=== PATIENT | female | born 1960 | race Caucasian/White ===

== ENCOUNTER → 2016-05-25 | Outpatient (REF) | payer OTHER ==
[~2016-05-25] MED LIST: CIPR750T2 PO; FURO40TA2 PO; IBUP80TA PO; INSUHUMDS SC; JANU100T PO; LACT20EL PO; LANTINJ4 SC; LORA10TA2 PO; NADO40TA PO; NEUR300C PO; NYST10CR TOP; NYST10PW TOP; OMEP20CA3 PO; OXYC10TA12 PO; PARO40TA PO; PRED20TA PO; PROA1AER INH; PROP10TA56 PO; ROPI4TAB PO; SENN8.6C PO; SENN8.6T76 PO; SPIR100T PO; VARE1TA PO; VITA1CAP25 PO; [UNRECOGNIZED DRUG - CODE] XX
== END ==
LOC: M SMT 12:45
PROVIDERS: ATTEND Urology
DX: Z85.51 Personal history of malignant neoplasm of bladder (principal)

== ENCOUNTER → 2016-09-19 | Outpatient (REF) | payer OTHER ==
[~2016-09-19] MED LIST changes: -PARO40TA PO; +PARO40TA2 PO
== END ==
LOC: M SMT 17:22
PROVIDERS: ATTEND Urology
DX: C67.9 Malignant neoplasm of bladder, unspecified (principal)

== ENCOUNTER → 2017-01-23 | Outpatient (REF) | payer MEDICARE, MEDICAID ==
[~2017-01-23] MED LIST changes: -PROA1AER INH; +PROAAER10 INH
== END ==
LOC: M SMT 17:02
PROVIDERS: ATTEND Urology
DX: Z85.51 Personal history of malignant neoplasm of bladder (principal)

== ENCOUNTER → 2017-08-14 | Outpatient (REF) | payer MEDICARE, OTHER, MEDICAID | LOC: M LAB REF 18:08 | DX: N39.41 Urge incontinence (principal); C67.9 Malignant neoplasm of bladder, unspecified | CPT/HCPCS: 87086 ==

== ENCOUNTER → 2019-05-07 | Outpatient (REF) | payer MEDICARE, MEDICAID ==
[~2019-05-07] MED LIST changes: +LACT10SO7 PO; -LACT20EL PO; +LORA-243 PO; -LORA10TA2 PO; +NYST-15 TOP; +NYST100029 TOP; -NYST10CR TOP; -NYST10PW TOP; +OMEP1CAP73 PO; -OMEP20CA3 PO; -ROPI4TAB PO; +ROPI4TAB3 PO; -SPIR100T PO; +SPIR100T3 PO
== END ==
LOC: M SMT 16:53
PROVIDERS: ATTEND Urology
DX: C67.9 Malignant neoplasm of bladder, unspecified (principal)

== ENCOUNTER → 2020-03-29 | Outpatient (REF) | payer MEDICARE, MEDICAID | LOC: M SMT 13:12 | PROVIDERS: ATTEND Urology | DX: Z85.51 Personal history of malignant neoplasm of bladder (principal) ==

== ENCOUNTER → 2020-11-23 | Outpatient (REF) | payer MEDICARE, MEDICAID | LOC: M SMT 16:59 | PROVIDERS: ATTEND Urology | DX: N39.0 Urinary tract infection, site not specified (principal); Z85.51 Personal history of malignant neoplasm of bladder ==

== ENCOUNTER 2020-12-18 12:54 | Inpatient (IN) | payer MEDICARE, MEDICAID ==
[~2020-12-18] VITALS: Ht 162.6 cm; Wt 110.2 kg
--- NOTE | 2020-12-18 16:59 | REP ---
INDICATION: fall/pain/limited ROM. COMPARISON: None. TECHNIQUE: AP view of the pelvis and AP and lateral view of the left hip were obtained. FINDINGS: There is a mildly impacted subcapital fracture of the left femur. The right hip is normal. There is minimal arthritis of both SI joints. There is a soft tissue calcification in the left proximal thigh. IMPRESSION: 1. Mildly impacted subcapital fracture of the left femur. 2. Evidence of remote injury to the origin of the left rectus femoris. 3. Mild arthritis of both SI joints. Critical Findings: Subcapital fracture of the left femur. The critical information above was relayed directly by me by telephone to DARREL MEDINA on 12/18/2020 at 4:54 pm with readback verification. <Electronically signed by Irwin John > 12/18/20 [id number]
[2020-12-18] MEDS ORDERED: MORPHINE 4 MG/ML 1ML VIAL/SYRINGE (J2270) IV ONE (17:00)
[2020-12-18 17:29] LABS: BASO % 0.8 % (0.0-1.0); EOS # 0.1 10^3/uL (0.0-0.5); EOS % 2.8 % (0.0-3.0); HEMATOCRIT 41.4 % (36.0-47.0); HEMOGLOBIN 13.9 g/dl (12.0-15.5); LYMPH # 0.8 10^3/uL (1.5-5.0); LYMPH % 31.5 % (24.0-44.0); MEAN CORPUSCULAR HEMOGLOBIN 30.8 pg (27.0-33.0); MEAN CORPUSCULAR HGB CONC 33.6 g/dl (32.0-36.5); MEAN CORPUSCULAR VOLUME 91.6 fl (80.0-96.0); MONO # 0.3 10^3/uL (0.0-0.8); MONO % 10.4 % (2.0-8.0); NEUTROPHILS # 1.4 10^3/uL (1.5-8.5); NEUTROPHILS % 54.1 % (36.0-66.0); RED BLOOD COUNT 4.52 10^6/uL (4.00-5.40); WHITE BLOOD COUNT 2.5 10^3/uL (4.0-10.0)
[2020-12-18 17:39] LABS: INR 1.23; PROTHROMBIN TIME 15.9 SECONDS (12.7-14.5)
[2020-12-18 17:40] LABS: PARTIAL THROMBOPLASTIN TIME 42.1 SECONDS (25.9-37.0)
[2020-12-18] MEDS ORDERED: GLUCAGON INJ 1MG VIAL SC PRN (17:45)
[2020-12-18] MEDS ORDERED: GLUCOSE 4GM CHEW TABLET PO PRN (17:45)
[2020-12-18] MEDS ORDERED: DEXTROSE 50% 50 ML SYRINGE IV PRN (17:45)
--- NOTE | 2020-12-18 17:45 | IPNPDOC ---
Text Note Date of Service Ortho eval - Images reviewed. Pt. with Hx of fall 2 wks previously and presents with L femoral neck Fx - Admit to medical service --> OR clearance - Duplex B/L LE given age of Fx - Plan for CRPP 12/19 - NWB, bed rest - SCD pending U/S results - Full consult to follow - Medical assistance appreciated VS,Fishbone, I+O VS, Fishbone, I+O Vital Signs Date Time Temp Pulse Resp B/P (MAP) Pulse Ox O2 Delivery O2 Flow Rate FiO2 12/18/20 17:34 20 12/18/20 12:55 97.3 65 118/56 (76) 97 Room Air SANKET RODRIGUEZ MD Dec 18, 2020 17:45
[2020-12-18 17:57] LABS: BLOOD UREA NITROGEN 11 MG/DL (7-18); CALCIUM LEVEL 8.1 MG/DL (8.8-10.2); CARBON DIOXIDE LEVEL 33 MEQ/L (21-32); CHLORIDE LEVEL 105 MEQ/L (98-107); CREATININE FOR GFR 0.55 MG/DL (0.55-1.30); GLOMERULAR FILTRATION RATE > 60.0 (>45); GLUCOSE, FASTING 291 MG/DL (70-100); POTASSIUM SERUM 3.8 MEQ/L (3.5-5.1); SODIUM LEVEL 140 MEQ/L (136-145)
[2020-12-18 17:58] LABS: PLATELET COUNT, AUTOMATED 30 10^3/uL (150-450)
[2020-12-18 18:25] LABS: RSV AMPLIFICATION NEGATIVE (NEGATIVE)
--- NOTE | 2020-12-18 18:28 | REP ---
INDICATION: fractured hip 3 weeks ago. COMPARISON: None. TECHNIQUE: Pulse duplex and color Doppler ultrasound evaluation of the lower extremities was performed. FINDINGS: There are no findings to suggest deep venous thrombosis of either lower extremity. IMPRESSION: No evidence of deep venous thrombosis of either lower extremity. <Electronically signed by Irwin John > 12/18/20 0803
--- NOTE | 2020-12-18 18:37 | REPVR ---
PROCEDURE INFORMATION: Exam: XR Chest Exam date and time: 12/18/2020 6:14 PM Age: 60 years old Clinical indication: Other: Pre op; Additional info: Preop hip FX TECHNIQUE: Imaging protocol: XR of the chest. Views: 1 view. COMPARISON: CT ABD PELVIS W/O CONTRAST 02/09/2015 10:53 PM FINDINGS: Lungs: Atelectasis left lung base. Lungs are clear. Pleural spaces: Unremarkable. No pleural effusion. No pneumothorax. Heart/Mediastinum: Unremarkable. No cardiomegaly. Bones/joints: Status post lower cervical interbody fusion. IMPRESSION: No acute findings. Electronically signed by: Twin Nair On 12/18/2020 18:36:39 PM
--- NOTE | 2020-12-18 18:41 | HPEPDOC ---
[facility] Medical History & Physical Date of Admission Dec 18, 2020 Date of Service: Dec 18, 2020 History and Physical CHIEF COMPLAINT: left hip pain x 3 weeks, fall at home 3 wks ago HISTORY OF PRESENT ILLNESS: 60F on gabapentin, ropinirole fell asleep while standing in her kitchen 3 weeks ago, landing on her left side, hitting her head on the floor, but awakened quickly, and was able to getup after a few minutes. Pt was evaluated at [facility], and was sent home. Due to persistent left hip pain, she then went to [facility] last week and was given pain meds. She has been walking with a walker and cane, and noticed b/l LE edema today w/o sob, pleuritic chest pain, or palpitations. Pt denied any prodromal symptoms prior to her fall, and said she just "fell asleep" while she was standing. She c/o left hip pain 8/10 worse with bearing weight and ambulating, minimal relief w PRN pain meds. w/o parethesias or cyanosis of the left leg, but b/l LE swelling noted just today. She denies any recurrent falls. ROS: denies wt changes/appetite/n/v/d/abd pain, visual changes, ear d/c, vertigo, tinnitus, URI sx's like rhinorrhea , congestion, h/a, dysuria, urgency, frequency, LAD, mm or joint pains, polyuria, polydipsia, polyphagia, UE/LE paresthesias. At [facility], pt was found to have a left subcapital femoral fracture and b/l LE edema being ruled out for DVT. Pt was seen by [facility] ortho radio communications superintendent who will take her to the OR in am. Hospitalist was asked to admit and medically optimize the patient. PAST MEDICAL HISTORY: Bladder CA s/p TURBT DM2 COPD Liver Cirrhosis Bneton's esophagus Fibromyalgia chronic neck/back pain depression Restless legs syndrome DM peripheral neuropathy PAST SURGICAL HISTORY: appy cholecystectomy carpal tunnel csection hysterectomy bladder repair tubial ligation TURBT liver biopsy SOCIAL HISTORY: smoker social etoh denies drug use disabled FAMILY HISTORY: Father: cad Mother:dm, cad ALLERGIES: PCN REVIEW OF SYSTEMS: 10 point ROS neg aside from +finding on hpi HOME MEDICATIONS: Please see below. PHYSICAL EXAMINATION: VITAL SIGNS: see below GENERAL APPEARANCE: anicteric no distress no pallor speaks in full sentences HEENT: no jvd eomi no carotid bruit moist mm CARDIOVASCULAR: s1 s2 no s3 rrr LUNGS: CTAB AEBE ABDOMEN:obese distended no rebound or guarding +bowel sounds. +fluid wave EXTREMITIES: 3+edema to sacrum, left hip tender. dp pt 2+ pulses. warm to touch. chronic venous stasis changes b/l LE. LABORATORY DATA: See below. IMAGING: see below MICROBIOLOGY: Please see below. ASSESSMENT: 60F on gabapentin, ropinirole fell asleep while standing in her kitchen 3 weeks ago, landing on her left side, hitting her head on the floor, but awakened quickly, and was able to getup after a few minutes. Pt was evaluated at [facility], and was sent home. Due to persistent left hip pain, she then went to [facility] last week and was given pain meds. She has been walking with a walker and cane, and noticed b/l LE edema today w/o sob, pleuritic chest pain, or palpitations. Pt denied any prodromal symptoms prior to her fall, and said she just "fell asleep" while she was standing. She c/o left hip pain 8/10 worse with bearing weight and ambulating, minimal relief w PRN pain meds. w/o parethesias or cyanosis of the left leg, but b/l LE swelling noted just today. She denies any recurrent falls. ROS: denies wt changes/appetite/n/v/d/abd pain, visual changes, ear d/c, vertigo, tinnitus, URI sx's like rhinorrhea , congestion, h/a, dysuria, urgency, frequency, LAD, mm or joint pains, polyuria, polydipsia, polyphagia, UE/LE paresthesias. At [facility], pt was found to have a left subcapital femoral fracture and b/l LE edema being ruled out for DVT. Pt was seen by [facility] ortho radio communications superintendent who will take her to the OR in am. H ospitalist was asked to admit and medically optimize the patient. Pt is admitted for left hip fracture s/p fall due to medication-induced ams as an inpatient. Medical clearance -high risk for dvt, us b/l le ordered. if negative, gentle diuresis for comfort overnight. -medically optimized to proceed to surgery in am.cxr ekg ordered. -npo after midnight. hypoglycemic protocol Left subcapital femoral fracture -ortho consulted -npo after midnight B/L LE edema -r/o dvt -venous dopplers ordered liver cirrhosis with anasarca -resume lasix, and if becomes hypotensive, may need albumin q6hrs. -may need paracentesis during this admission. -r/o dvt w venous dopplers Bladder CA s/p TURBT -stable DM2 -consist carbs diet, but npo aftermidnight -fbgqachs, sliding scale COPD -resume bronchodilators Benton's esophagus -on PPI Fibromyalgia/chronic neck/back pain -monitor on home meds. -has caused sedation causing left hip fracture depression -chronic Restless legs syndrome -chronic DM peripheral neuropathy -avoid excessive sedation. Vital Signs Vital Signs Date Time Temp Pulse Resp B/P (MAP) Pulse Ox O2 Delivery O2 Flow Rate FiO2 12/18/20 17:34 20 12/18/20 12:55 97.3 65 118/56 (76) 97 Room Air Laboratory Data Labs 24H Laboratory Tests 2 12/18/20 17:10: Immature Granulocyte % (Auto) 0.4, Neutrophils (%) (Auto) 54.1, Lymphocytes (%) (Auto) 31.5, Monocytes (%) (Auto) 10.4H, Eosinophils (%) (Auto) 2.8, Basophils (%) (Auto) 0.8, Neutrophils # (Auto) 1.4L, Lymphocytes # (Auto) 0.8L, Monocytes # (Auto) 0.3, Eosinophils # (Auto) 0.1, Basophils # (Auto) 0.0, Nucleated Red Blood Cells % (auto) 0.0, Immature Platelet Fraction 13.2H, Prothrombin Time 15.9H, Prothromb Time International Ratio 1.23, Activated Partial Thromboplast Time 42.1H, Anion Gap 2L, Glomerular Filtration Rate > 60.0, Calcium Level 8.1L CBC/BMP Laboratory Tests 12/18/20 17:10 Home Medications Scheduled Cholecalciferol (Vitamin D3) (Vitamin D3) 50,000 Unit Cap, 50,000 UNIT PO 1XWK Ciprofloxacin HCl (Ciprofloxacin HCl) 750 Mg Tab, 750 MG PO BID Furosemide (Furosemide) 40 Mg Tab, 80 MG PO DAILY Gabapentin (Neurontin) 300 Mg Cap, 300 MG PO QHS Insulin Glargine,Hum.rec.anlog (Lantus Solostar) 100 Unit/Ml Inj, 70 UNITS SC QHS Insulin Human Lispro (Humalog) 1 Units/0.01 Ml Inj, 40 UNITS SC BID Loratadine (Loratadine) 10 Mg Tab, 10 MG PO DAILY Omeprazole (Omeprazole) 20 Mg Cap, 20 MG PO DAILY Paroxetine HCl (Paroxetine HCl) 40 Mg Tab, 40 MG PO DAILY Propranolol HCl (Propranolol HCl) 10 Mg Tab, 10 MG PO TID Ropinirole HCl (Ropinirole HCl) 4 Mg Tab, 2 MG PO BID Senna (Senna) 8.6 Mg Cap, 1 CAP PO DAILY Sitagliptin Phosphate (Januvia) 100 Mg Tab, 100 MG PO DAILY Spironolactone (Spironolactone) 100 Mg Tab, 200 MG PO DAILY Varenicline (Chantix) 1 Mg Tab, 1 MG PO BID Scheduled PRN Albuterol Sulfate (Proair Hfa) 108 Mcg/Act Aer, 108 MCG INH Q4HP PRN for SHORTNESS OF BREATH Ibuprofen (Ibuprofen) 800 Mg Tab, 800 MG PO TIDP PRN for PAIN Lactulose (Lactulose) 10 Gm/15 Ml Nneka, 30 GM PO DAILYPRN PRN for CONSTIPATION Nystatin (Nystop Powder) 1 Dose/15 Gm Powd, 0 TOP BIDP PRN for RASH Nystatin (Nystatin Cream) 1 Dose/15 Gm Cream, 0 TOP BIDP PRN for RASH Polyethylene Glycol 3350 (Polyethylene Glycol 3350) 1 Gra Gra, 1 GRA XX DAILYPRN PRN for CONSTIPATION Allergies Coded Allergies: gabapentin (Verified Allergy, Unknown, 12/18/20) A-FIB/CHADSVASC A-FIB History Current/History of A-Fib/PAF?: No Current PO Anticoag Therapy: No Age/Risk Factor Scoring CHADSVASC: CHADSVASC Response (Comments) Value Age Risk Factor Age < 65 years old 0 Gender Risk Factor Female 1 Hx of CHF No 0 Hx of HTN No 0 Hx of Stroke/TIA/or VTE No 0 Hx of Diabetes Yes 1 Hx of Vascular Disease No 0 Total 2 Treatment Treatment ordered: NONE Reason Anticoagulant not given: Recent/upcomin procedure MARILYNN SOLIS MD Dec 18, 2020 18:41
[2020-12-18] MEDS ORDERED: TOUJ1.2I SC (18:42)
[2020-12-18] MEDS ORDERED: LINZ145C PO (18:42)
[2020-12-18] MEDS ORDERED: OXYC-517 PO (18:42)
[2020-12-18] MEDS ORDERED: VENL75CA47 PO (18:42)
[2020-12-18] MEDS ORDERED: ATIV1TAB10 PO (18:42)
[2020-12-18] MEDS ORDERED: NOVOINJ3 SC (18:42)
[2020-12-18] MEDS ORDERED: CONS10SO3 PO (18:42)
[2020-12-18] MEDS ORDERED: HYDR-3363 PO (18:42)
[2020-12-18] MEDS ORDERED: FLUTISP NARES (18:42)
[2020-12-18] MEDS ORDERED: TRAM50TA2 PO (18:42)
[2020-12-18] MEDS ORDERED: HOME MED LIST COMPLETE! XX SCH (18:45)
[2020-12-18] MEDS ORDERED: LORazepam 0.5 MG TAB PO PRN (18:50)
[2020-12-18] MEDS ORDERED: FLUTICASONE PROP 0.05% NASAL SPRAY 16 GM (FLONASE) NARES PRN (18:50)
[2020-12-18] MEDS ORDERED: hydrOXYzine 25 MG TAB PO PRN (18:50)
[2020-12-18] MEDS ORDERED: traMADol 50 MG TAB PO PRN (18:50)
--- NOTE | 2020-12-18 18:55 | ECGEPIP ---
[facility] Test Date: 2020-12-18 Pat Name: RADHIKA CLAROS Department: Room: - Gender: Female Administrative Clerk: magdalena : 1960 Requested By: MARILYNN Dunaway Order Number: [id number] Reading MD: Lupillo Pena Measurements Intervals [place] Rate: 55 P: 77 SD: 168 QRS: 61 QRSD: 102 T: 51 QT: 468 QTc: 447 Interpretive Statements Sinus bradycardia Delayed anterior R wave progression Comparison tracing not on file Electronically Signed on 12-18-2020 18:54:45 EDT by Lupillo Pena
[2020-12-18 19:02] VITALS: BP 138/58
[2020-12-18] MEDS: LACTULOSE 20 GM/30 ML SYRUP UD PO SCH (21:51)
[2020-12-18] MEDS: oxyCODONE 5MG TAB PO PRN (21:52)
[2020-12-18] MEDS: HumaLOG INSULIN (NovoLOG) PER UNIT SC SCH (21:53)
[2020-12-18] MEDS: LEVEMIR (INSULIN DETEMIR) 1 UNITS/0.01ML SC SCH (21:53)
[2020-12-18 22:00] VITALS: BP 136/57
[2020-12-19] VITALS (12 sets, daily range): BP systolic 99–128; BP diastolic 49–83; O2SAT 94
[2020-12-19] MEDS: oxyCODONE 5MG TAB PO PRN ×2 (05:48→20:28)
[2020-12-19] MEDS: HumaLOG INSULIN (NovoLOG) PER UNIT SC SCH ×4 (07:30→20:27)
[2020-12-19] MEDS: LACTULOSE 20 GM/30 ML SYRUP UD PO SCH ×4 (08:07→20:26)
--- NOTE | 2020-12-19 08:24 | CR.PDOC ---
General Date of Consultation: Dec 19, 2020 Referring Provider: MARILYNN SOLIS MD Consultation REASON FOR CONSULTATION/CHIEF COMPLAINT: L hip Fx. HISTORY OF PRESENT ILLNESS: 60 yo F with mulitple medical problems presented to ED with L hip pain. Pt. noted to have fallen asleep while standing and fell. Seen in local ED near home with hip pain and discharged with a cane. Pt. has been walking on her leg since that time and notes persistent pain and difficulty. ALLERGIES: PCN. HOME MEDICATIONS: Please see below. PAST MEDICAL HISTORY: Bladder CA s/p TURBT DM2 COPD Liver Cirrhosis Benton's esophagus Fibromyalgia chronic neck/back pain depression Restless legs syndrome DM peripheral neuropathy PAST SURGICAL HISTORY: appy cholecystectomy carpal tunnel csection hysterectomy bladder repair tubial ligation TURBT liver biopsy SOCIAL HISTORY: smoker social etoh denies drug use disabled FAMILY HISTORY: Father: cad Mother:dm, cad REVIEW OF SYSTEMS: CONSTITUTIONAL: . HEENT: . CARDIOVASCULAR: . RESPIRATORY: . GENITOURINARY: . MUSCULOSKELETAL: L hip pain. GASTROINTESTINAL: . SKIN: . NEUROLOGICAL: . PSYCHIATRIC: . ENDOCRINE: . HEMATOLOGIC/LYMPHATIC: . ALLERGIC/IMMUNOLOGIC: . PHYSICAL EXAMINATION: VITAL SIGNS: Please see below. GENERAL APPEARANCE: AAOx3. HEENT: . RESPIRATORY: . CARDIOVASCULAR: . ABDOMEN: . EXTREMITIES: LLE - + pain on log roll, decreased ROM NEUROLOGICAL: sp/dp/s/s/t intact PSYCHIATRIC: . LABORATORY DATA: Please see below. ASSESSMENT/PLAN: 1. 60 yo F with L femoral neck Fx, valgus impacted - Plan CRPP today - NWB - NPO - Pt. to be TTWB following surgical intervention Vital Signs Date Time Temp Pulse Resp B/P (MAP) Pulse Ox O2 Delivery O2 Flow Rate FiO2 12/19/20 06:18 18 12/19/20 06:00 97.9 60 16 104/49 (67) 94 Room Air 12/19/20 05:48 16 12/18/20 22:22 14 12/18/20 22:00 97.9 63 16 136/57 (83) 93 Room Air 12/18/20 21:52 16 12/18/20 19:02 97.9 58 16 138/58 (84) 98 Room Air 12/18/20 17:34 20 12/18/20 12:55 97.3 65 18 118/56 (76) 97 Room Air Intake & Output 12/19/20 06:00 Intake Total 410 ml Balance 410 ml Laboratory Tests 12/18/20 17:10: White Blood Count 2.5L, Red Blood Count 4.52, Hemoglobin 13.9, Hematocrit 41.4, Mean Corpuscular Volume 91.6, Mean Corpuscular Hemoglobin 30.8, Mean Corpuscular Hemoglobin Concent 33.6, Red Cell Distribution Width 14.5, Platelet Count 30L, Immature Granulocyte % (Auto) 0.4, Neutrophils (%) (Auto) 54.1, Lymphocytes (%) (Auto) 31.5, Monocytes (%) (Auto) 10.4H, Eosinophils (%) (Auto) 2.8, Basophils (%) (Auto) 0.8, Neutrophils # (Auto) 1.4L, Lymphocytes # (Auto) 0.8L, Monocytes # (Auto) 0.3, Eosinophils # (Auto) 0.1, Basophils # (Auto) 0.0, Nucleated Red Blood Cells % (auto) 0.0, Immature Platelet Fraction 13.2H, Prothrombin Time 15.9H, Prothromb Time International Ratio 1.23, Activated Partial Thromboplast Time 42.1H, Sodium Level 140, Potassium Level 3.8, Chloride Level 105, Carbon Dioxide Level 33H, Anion Gap 2L, Blood Urea Nitrogen 11, Creatinine 0.55, Glomerular Filtration Rate > 60.0, Fasting Glucose 291H, Calcium Level 8.1L, Coronavirus (COVID-19)(PCR) NEGATIVE, Influenza Type A (RT-PCR) NEGATIVE, Influenza Type B (RT-PCR) NEGATIVE, Respiratory Syncytial Virus (PCR) NEGATIVE 12/18/20 21:08: Bedside Glucose (Misc Panel) 288H 12/19/20 05:07: Bedside Glucose (Misc Panel) 181H Current Medications Medications (Trade) Dose Ordered Sig/Eladio Route PRN Reason Start Time Stop Time Status Last Admin Dose Admin Hydroxyzine HCl (Atarax) 25 mg QHS PRN PO ANXIETY 12/18/20 18:50 12/18/20 21:51 25 MG Insulin Detemir (Levemir Insulin) 30 units BID SC 12/18/20 21:00 12/18/20 21:53 30 UNITS Insulin Human Lispro (HumaLOG INSULIN) SEE PROTOCOL TABLE QHS SC 12/18/20:00 12/18/20 21:53 2 UNITS Lactulose (Cephulac) 30 ml QID PO 12/18/20 21:00 12/18/20 21:51 30 ML Oxycodone HCl (Roxicodone, Oxyir) 5 mg Q6H PRN PO PAIN LEVEL 5-10 12/18/20 18:50 12/19/20 05:48 5 MG Vital Signs/I&O Vital Signs Date Time Temp Pulse Resp B/P (MAP) Pulse Ox O2 Delivery O2 Flow Rate FiO2 12/19/20 06:18 18 12/19/20 06:00 97.9 60 104/49 (67) 94 Room Air I&O- Last 24 Hours up to 6 AM 12/19/20 06:00 Intake Total 410 ml Balance 410 ml Laboratory Data Labs 24H Laboratory Tests 2 12/18/20 17:10: Immature Granulocyte % (Auto) 0.4, Neutrophils (%) (Auto) 54.1, Lymphocytes (%) (Auto) 31.5, Monocytes (%) (Auto) 10.4H, Eosinophils (%) (Auto) 2.8, Basophils (%) (Auto) 0.8, Neutrophils # (Auto) 1.4L, Lymphocytes # (Auto) 0.8L, Monocytes # (Auto) 0.3, Eosinophils # (Auto) 0.1, Basophils # (Auto) 0.0, Nucleated Red Blood Cells % (auto) 0.0, Immature Platelet Fraction 13.2H, Prothrombin Time 15.9H, Prothromb Time International Ratio 1.23, Activated Partial Thromboplast Time 42.1H, Anion Gap 2L, Glomerular Filtration Rate > 60.0, Calcium Level 8.1L, Coronavirus (COVID-19)(PCR) NEGATIVE, Influenza Type A (RT-PCR) NEGATIVE, Influenza Type B (RT-PCR) NEGATIVE, Respiratory Syncytial Virus (PCR) NEGATIVE 12/18/20 21:08: Bedside Glucose (Misc Panel) 288H 12/19/20 05:07: Bedside Glucose (Misc Panel) 181H CBC/BMP Laboratory Tests 12/18/20 17:10 Allergies Coded Allergies: gabapentin (Verified Allergy, Unknown, 12/18/20) Home Medications Scheduled Insulin Aspart (Novolog Flexpen) 100 Unit/1 Ml Insuln.pen, 1 DOSE SC AC, (Reported) PER SLIDING SCALE Insulin Glargine,Hum.rec.anlog ([place] Solostar) 300 Unit/1 Ml Insuln.pen, 30 UNITS SC BID, (Reported) Lactulose (Constulose) 10 Gm/15 Ml Solution, 30 ML PO QID, (Reported) Linaclotide (Linzess) 145 Mcg Capsule, 145 MCG PO DAILY, (Reported) Venlafaxine HCl (Venlafaxine HCl ER) 75 Mg Cap.er.24h, 75 MG PO DAILY, (Reported) Scheduled PRN Fluticasone Propionate (Fluticasone Propionate) 16 Gm [place].susp, 1 SPRAY NARES BID PRN for CONGESTION, (Reported) Hydroxyzine HCl (Hydroxyzine HCl) 25 Mg Tablet, 25 MG PO QHS PRN for ANXIETY, (Reported) Lorazepam (Ativan) 0.5 Mg Tablet, 0.5 MG PO BID PRN for ANXIETY, (Reported) Oxycodone HCl (Oxycodone HCl) 5 Mg Tablet, 5 MG PO Q6H PRN for PAIN LEVEL 5-10, (Reported) Tramadol HCl (Tramadol HCl) 50 Mg Tablet, 50 MG PO BID PRN for PAIN LEVEL 3-5, (Reported) SANKET RODRIGUEZ MD Dec 19, 2020 08:24
--- NOTE | 2020-12-19 08:36 | REP ---
INDICATION: Fx. COMPARISON: Left hip and pelvis, 12/18/2020. TECHNIQUE: AP and frogleg lateral views of the left hip were obtained. FINDINGS: There is again noted and impacted subcapital fracture of the left femur. The fracture is of indeterminate age. IMPRESSION: Impacted subcapital fracture of the left femur of indeterminate age. <Electronically signed by Irwin John > 12/19/20 0839
[2020-12-19] MEDS: VENLAFAXINE **XR** 75MG CAPSULE PO SCH (09:00)
[2020-12-19] MEDS ORDERED: FLUBLOK(EGG FREE)(QUAD)INFLUENZA VACC 0.5ML SYRINGE 18YRS & OLDER IM ONE (09:00)
[2020-12-19] MEDS ORDERED: LINACLOTIDE PO SCH (09:00)
[2020-12-19] MEDS: LEVEMIR (INSULIN DETEMIR) 1 UNITS/0.01ML SC SCH ×2 (09:00→20:27)
[2020-12-19] MEDS ORDERED: ceFAZolin 2 GM/D5W 50 ML IV BAG (J0690 PER 500MG) As Ordered ONE (11:42)
[2020-12-19] MEDS ORDERED: TRANEXAMIC ACID 100 MG/ML 10ML VIAL As Ordered ONE (12:10)
[2020-12-19] MEDS ORDERED: fentaNYL 100 MCG/2 ML INJECTION (J3010) As Ordered ONE (12:13)
[2020-12-19] MEDS ORDERED: ePHEDrine SULFATE 25 MG/5 ML(5MG/ML) SYRINGE As Ordered ONE (12:13)
[2020-12-19] MEDS ORDERED: SUGAMMADEX SODIUM 500 MG/5 ML VIAL (BRIDION) As Ordered ONE (12:13)
[2020-12-19] MEDS ORDERED: ROCURONIUM BROMIDE 50 MG/5 ML VIAL As Ordered ONE ×2 (12:13→12:43)
[2020-12-19] MEDS ORDERED: ONDANSETRON 4MG/2ML VIAL As Ordered ONE ×2 (12:13→12:15)
[2020-12-19] MEDS ORDERED: propofoL 200 MG/20 ML VIAL As Ordered ONE (12:13)
[2020-12-19] MEDS ORDERED: HYDROmorphone HCL 2 MG/ML 1ML VIAL (J1170) As Ordered ONE (12:13)
[2020-12-19] MEDS ORDERED: dexameTHASONE 4 MG/ML 1ML VIAL (J1100 PER 1MG) As Ordered ONE (12:13)
[2020-12-19] MEDS ORDERED: MIDAZOLAM INJ 2MG/2ML VIAL (J2250 PER 1MG) As Ordered ONE (12:13)
[2020-12-19] MEDS ORDERED: LIDOCAINE 2% 100MG/5ML SDV (FOR ANES.) As Ordered ONE (12:13)
[2020-12-19] MEDS ORDERED: VASOPRESSIN INJ 20 UNITS/ML VIAL As Ordered ONE (12:15)
--- NOTE | 2020-12-19 13:44 | ROOPDOC ---
[facility] Report Of Operation Report of Operation DATE OF PROCEDURE: 12/19/20 PREPROCEDURE DIAGNOSES: Left femoral neck fracture. POSTPROCEDURE DIAGNOSES: Same. PROCEDURE PERFORMED: Closed reduction percutaneous pinning left hip. SURGEON: Sanket Donahue MD VIBRATION ENGINEER: ANESTHESIA: General. ESTIMATED BLOOD LOSS: Approximately 50 mL. COMPLICATIONS: None. REMARKS: Stable to PACU. FINDINGS: As above SPECIMENS REMOVED: None PROCEDURE NOTE: Patient is a 60-year-old female status post fall from standing when she fell asleep approximately 3 weeks previously. She was seen in an outside hospital for left hip pain and discharged home. She had been ambulating with a cane however continue to have persistent left hip pain and presented to [facility] for evaluation. Diagnosis of nondisplaced left subcapital femoral neck fracture was made and plans for operative intervention ensued. Patient was greeted in the holding area all final questions were asked and answered. Informed consent was obtained and site was marked. Patient was then transferred to the operating suite moved from the bed to the op erating table in a supine position and induced via general anesthetic. All bony prominences were padded. Contralateral nonoperative leg was placed in fracture table stirrup. Operative leg was placed in ski boot after application of well- padded cotton roll. Mild manipulation and distraction of fracture ensued to improve anatomical alignment. Preoperative x-rays were recorded and saved. Once orientation had been achieved a 5 cm incision was made over the lateral aspect of the left leg was bluntly brought down to the femur and fascial layer was spread bluntly with Bunn scissors. Initial guidepin was placed under direct visualization. Alignment was found to be adequate confirmed on both AP and lateral radiographs for which additional superior pins one anteriorly and posterior in an inverted triangle fashion were placed. All guide pins were stopped short of the undersurface of the femoral articular cartilage. Measurements were made to achieve screw length and found to be 80 cm x 2 superiorly and 90 cm for the inferior pin. Guidewires were left in place and lateral cortex was breached with drill bit. Cancellous screws were then placed over guidewire fashion and found to be appropriate tip apex distance via both AP and lateral radiographs. Guidepins were then removed. Fixation was recorded to be a final AP and lateral radiographs. Copious irrigation then ensued and fascial layer was closed in an interrupted fashion using 0 Vicryl. 0 Vicryl to the deep subcutaneous layer was then made followed by 2-0 Vicryl to the subcutaneous tissue. Skin layer was closed with joanne. Dry sterile occlusive dressing was placed and patient was weaned from anesthetic successfully. She was transferred from the operating table to the stretcher in stable condition. Uneventful procedure which was well-tolerated and patient was discharged to the PACU in stable condition. DESCRIPTION OF PROCEDURE: . SANKET DONAHUE MD Dec 19, 2020 13:43
[2020-12-19] MEDS ORDERED: ONDANSETRON 4MG/2ML VIAL IV PRN (14:00)
[2020-12-19] MEDS ORDERED: MORPHINE 2 MG/ML 1ML VIAL (J2270) IV PRN (14:00)
[2020-12-19] MEDS ORDERED: oxyCODONE 5MG TAB PO PRN (14:00)
[2020-12-19] MEDS ORDERED: fentaNYL 100 MCG/2 ML INJECTION (J3010) IV PRN (14:00)
[2020-12-19] MEDS ORDERED: LR 1,000 ML IV SCH (14:00)
[2020-12-19] MEDS ORDERED: METOCLOPRAMIDE INJ 10MG/2ML VIAL (J2765 PER 1) IV PRN (14:00)
--- NOTE | 2020-12-19 15:41 | REP ---
INDICATION: ORIF LEFT HIP. COMPARISON: None. TECHNIQUE: 4 images were obtained intraoperatively with the C-arm during orthopedic screw placement. FINDINGS: Four images were obtained intraoperatively with a C-arm during orthopedic screw placement. IMPRESSION: As in findings. <Electronically signed by Irwin John > 12/19/20 0308
--- NOTE | 2020-12-19 16:09 | IPN ---
PROGRESS NOTE DATE: 12/19/2020 SUBJECTIVE: Patient complains of no pain while she is laying on her back at the bedside. No fever, chills, cough. No chest pain this morning. Patient has chronic lower extremity edema with increasing abdominal distention due to known history of liver cirrhosis. No deep venous thrombosis (DVT) noted on ultrasound on lower extremities yesterday. PHYSICAL EXAMINATION: VITAL SIGNS: Temperature 97.9, pulse 60, respiratory rate 16, blood pressure 104/49, 94% on room air. GENERAL: Awake, alert, oriented to person, place and time. HEENT: Anicteric. No jaundice. No jugular venous distention (JVD) or thyromegaly. LUNGS: Clear to auscultation.. No wheezing or rales. HEART: S1, S2. Sinus rhythm. ABDOMEN: Obese, soft, nontender, slightly distended with positive fluid wave. EXTREMITIES: 3+ edema to the sacrum. Left hip tender. Chronic venous stasis changes of the lower extremities. LABORATORY DATA/IMAGING STUDIES/MICROBIOLOGY: Have been reviewed. ASSESSMENT: This is a 60-year-old female with history of liver cirrhosis, thrombocytopenia and leukopenia with prior paracentesis, bladder cancer status post transurethral resection of the bladder tumor, type 2 diabetes, chronic obstructive pulmonary disease (COPD), Benton's esophagus, fibromyalgia, chronic neck and back pain, depression, restless leg and diabetic peripheral neuropathy, had a fall at home when she fell asleep while standing and fell and hit her head on the floor due to chronic gabapentin and ropinirole causing sedation. Patient was able to get up after a few minutes. She was seen at [facility] ([facility]) first and was sent home. Due to persistent pain, she went to [facility] and was given pain medication and has been ambulating with a walker and a cane. She has noticed a one day history of bilateral lower extremity edema, increasing pain and difficulty ambulating, prompting her to come to [facility]. She was found to have a left femoral impacted fracture, was seen by orthopedic surgeon who recommended surgical intervention. Overnight, patient has had no acute issues. IMPRESSION: 1. Left femoral fracture. Patient is medically stable to proceed to surgery despite platelets of 30,000. She is currently not exhibiting any signs of bleeding and she has been consented for transfusion. 2. Decompensated liver cirrhosis with significant ascites and 3+ lower extremity edema with negative deep venous thrombosis (DVT) on bilateral lower extremity Dopplers. Postoperatively, patient may be started back on her consistent carbohydrate diet and can start diuresis with intravenous (IV) Lasix and albumin transfusions to keep mean arterial pressure at 70-75. 3. History of Benton's esophagus. Continue on proton pump inhibitor (PPI). 4. History of fibromyalgia, chronic neck and back pain and restless leg syndrome with diabetic peripheral neuropathy. At risk for recurrent falls due to gabapentin and ropinirole. Will need assisted ambulation, physical therapy (PT), occupational therapy (OT) and acute rehabilitation unit (ARU) screen. 5. Type 2 diabetes. Consistent carbohydrate diet to be resumed. Sliding scale with insulin coverage. 5. Chronic obstructive pulmonary disease (COPD). As needed bronchodilators. 6. Left hip fracture. Postoperative management per surgical team. Will need deep venous thrombosis (DVT) prophylaxis due to increased risk of DVT, but will need to monitor the patient's platelets and signs of bleeding due to thrombocytopenia from chronic liver cirrhosis.
[2020-12-19] MEDS: FUROSEMIDE injection 250 MG in D5W 225 ML IV SCH (18:00)
[2020-12-19] MEDS ORDERED: MIDODRINE 5 MG TAB PO ONE (18:30)
[2020-12-19] MEDS: ceFAZolin SOD 2 GM in IV 1 EA IV SCH (18:46)
[2020-12-19 23:56] LABS: BLOOD UREA NITROGEN 16 MG/DL (7-18); CALCIUM LEVEL 7.7 MG/DL (8.8-10.2); CARBON DIOXIDE LEVEL 30 MEQ/L (21-32); CHLORIDE LEVEL 105 MEQ/L (98-107); CREATININE FOR GFR 0.79 MG/DL (0.55-1.30); GLOMERULAR FILTRATION RATE > 60.0 (>45); GLUCOSE, FASTING 378 MG/DL (70-100); MAGNESIUM LEVEL 1.6 MG/DL (1.8-2.4); POTASSIUM SERUM 4.5 MEQ/L (3.5-5.1); SODIUM LEVEL 139 MEQ/L (136-145)
[2020-12-20] MEDS: FUROSEMIDE injection 250 MG in D5W 225 ML IV SCH (01:00)
[2020-12-20 02:00] VITALS: BP 129/61
[2020-12-20] MEDS: oxyCODONE 5MG TAB PO PRN ×3 (03:56→22:44)
[2020-12-20] MEDS: ceFAZolin SOD 2 GM in IV 1 EA IV SCH (04:34)
[2020-12-20 05:43] VITALS: BP 126/58
[2020-12-20 07:05] VITALS: BP 115/68
[2020-12-20 07:08] LABS: HEMATOCRIT 35.4 % (36.0-47.0); HEMOGLOBIN 11.9 g/dl (12.0-15.5); MEAN CORPUSCULAR HEMOGLOBIN 30.9 pg (27.0-33.0); MEAN CORPUSCULAR HGB CONC 33.6 g/dl (32.0-36.5); MEAN CORPUSCULAR VOLUME 91.9 fl (80.0-96.0); RED BLOOD COUNT 3.85 10^6/uL (4.00-5.40); WHITE BLOOD COUNT 4.7 10^3/uL (4.0-10.0)
[2020-12-20 07:10] LABS: PLATELET COUNT, AUTOMATED 33 10^3/uL (150-450)
[2020-12-20 07:26] LABS: BLOOD UREA NITROGEN 16 MG/DL (7-18); CALCIUM LEVEL 8.4 MG/DL (8.8-10.2); CARBON DIOXIDE LEVEL 30 MEQ/L (21-32); CHLORIDE LEVEL 104 MEQ/L (98-107); CREATININE FOR GFR 0.81 MG/DL (0.55-1.30); GLOMERULAR FILTRATION RATE > 60.0 (>45); GLUCOSE, FASTING 320 MG/DL (70-100); MAGNESIUM LEVEL 1.7 MG/DL (1.8-2.4); POTASSIUM SERUM 4.4 MEQ/L (3.5-5.1); SODIUM LEVEL 140 MEQ/L (136-145)
[2020-12-20] MEDS ORDERED: MAG SULF 1GM/100ML (MAG RUN) 1 GM in IV 1 EA IV ONE (08:00)
[2020-12-20] MEDS: HumaLOG INSULIN (NovoLOG) PER UNIT SC SCH ×4 (08:52→22:20)
[2020-12-20] MEDS: LEVEMIR (INSULIN DETEMIR) 1 UNITS/0.01ML SC SCH ×2 (08:53→22:20)
[2020-12-20] MEDS: VENLAFAXINE **XR** 75MG CAPSULE PO SCH (08:53)
[2020-12-20] MEDS: MIDODRINE 5 MG TAB PO SCH ×2 (08:53→13:20)
[2020-12-20] MEDS: LACTULOSE 20 GM/30 ML SYRUP UD PO SCH ×4 (08:53→22:19)
[2020-12-20 09:00] VITALS: O2SAT 93
[2020-12-20] MEDS: ENOXAPARIN 40MG/0.4ML SYRINGE (J1650 PER 10MG) SC SCH (09:00)
[2020-12-20] MEDS ORDERED: ISOVUE-370 76% 100ML VIAL As Ordered ONE (09:45)
[2020-12-20] MEDS: GASTROGRAFIN SOLUTION 30ML PO SCH ×2 (10:10→10:39)
--- NOTE | 2020-12-20 10:20 | IPNPDOC ---
Text Note Date of Service The patient was seen on 12/20/20. NOTE Ortho progress note no events, doing well. PE - AVSS LLE - C/D/I GT up/down SILT A/P - 60 yo F s/p CRPP POD #1 - OOB/PT --> TTWB - PO analgesia - SCD - d/c planning when ready - f/u in Ortho clinic in 2 weeks VS,Kristine, I+O VS, Kristine, I+O Laboratory Tests 12/19/20 22:59 12/20/20 06:44 Vital Signs Date Time Temp Pulse Resp B/P (MAP) Pulse Ox O2 Delivery O2 Flow Rate FiO2 12/20/20 07:05 98.2 79 16 115/68 Nasal Cannula 2.0 12/20/20 05:43 98 I&O- Last 24 Hours up to 6 AM 12/20/20 06:00 Intake Total 1875 ml Output Total 50 ml Balance 1825 ml SANKET RODRIGUEZ MD Dec 20, 2020 10:20
--- NOTE | 2020-12-20 11:41 | IPN ---
PROGRESS NOTE DATE: 12/20/2020 SUBJECTIVE: Patient complains of 6/10 pain on pain scale at the hip. Currently on Percocet one tab every 4 hours as needed and Tramadol. No complaints of shortness of breath, chest pain, pressure or tightness overnight. No fever, chills, or cough. The patient has increasing abdominal distention and discomfort with worsening lower extremity edema, negative for DVT. PHYSICAL EXAMINATION: VITAL SIGNS: Temperature 98.2, pulse 79, respiratory rate 16, blood pressure 115/68, 98% 2 liters nasal cannula. GENERAL: anicteric, no pallor, icterus or jaundice. Able to speak in full sentences. No conversational dyspnea. LUNGS: Diminished but clear to auscultation. No wheezing or rales. HEART: S1, S2. Sinus rhythm. ABDOMEN: Distended, slightly tender bilateral lower quadrant, no rebound or guarding. Positive fluid wave. EXTREMITIES: 3+ pitting edema to the sacrum. Limited range of motion in the left hip secondary to recent surgery. Chronic venous stasis changes of bilateral lower extremities. LABORATORY DATA/IMAGING STUDIES/MICROBIOLOGY: Have been reviewed. ASSESSMENT/PLAN: This is a 60-year-old female with history of bladder CA, follows with Dr. Beth, liver cirrhosis, chronic thrombocytopenia and leukopenia with need for prior paracentesis, status post transurethral resection of the bladder tumor, type 2 diabetes, COPD, Benton's esophagus, fibromyalgia, chronic neck and back pain, depression, restless leg and diabetic peripheral neuropathy, had a fall at home when she fell asleep while standing and fell and hit her head on the floor due to chronic use of Gabapentin and Ropinirole causing sedation. Patient was on the ground for a few minutes but was able to get up. She was seen at [facility] and was sent home. Due to persistent pain, she went to [facility] and was given pain medication and has been ambulating with a walker and a cane for the past three weeks at home. Due to worsening pain and debility the patient presented to [facility] for further evaluation. She was found to have a left femoral impacted fracture and was brought into the operating room, status post cannulated screw placement to the left femoral neck fracture by Dr. Donahue on 12/19/2020. The patient had lower extremity edema evaluated with Dopplers, negative for DVT. She has increasing abdominal distention and discomfort, being evaluated for decompensated liver cirrhosis and was started on albumin transfusions, Midodrine and Lasix IV drip. The patient's weight is 108.36 kilos and only had 200 mL output yesterday, limited by patient's blood pressure of 108-113 systolic without Midodrine. ACTIVE ISSUES: 1. Fall at home secondary to medication-induced sedation with Gabapentin and Ropinirole resulting in left impacted femoral fracture, status post screw placement by orthopedic surgery on 12/19/2020. Postop management per orthopedic surgery. Patient may be started on DVT prophylaxis today. Will need to monitor the patient's platelet count while on Lovenox due to chronic thrombocytopenia from liver cirrhosis. ARU has been consulted. Activity per orthopedic surgery. Pain control with Percocet and Tramadol as needed. Bowel regimen has been provided. Monitor for increased sedation and lethargy while on her home medications and current use of Tramadol and Percocet. 2. Decompensated liver cirrhosis with anasarca, lower extremity edema, increasing abdominal distention. Due to abdominal discomfort CT abdomen and pelvis and ultrasound-guided paracentesis will be done today. She is kept on Lasix, albumin transfusions. 3. Chronic thrombocytopenia and leukopenia secondary to liver cirrhosis. The patient's platelet count and bleeding will need to be monitored while the patient is placed on Lovenox for DVT prophylaxis. 4. Hypomagnesemia, repleted. 5. History of bladder cancer, status post transurethral resection of bladder tumor. Follows with Dr. Beth as an outpatient. Repeat CT abdomen and pelvis today to further evaluate the abdominal distention and pain. Urology consult if the patient develops hematuria or if significant abnormalities found on CT abdomen and pelvis today. 6. Obesity complicating care. Monitor patient's CO2 and mental status while on opioids and Gabapentin and Ropinirole. 7. Type 2 diabetes, currently controlled on sliding scale insulin and fingerstick, on consistent carbohydrate diet. 8. Benton's esophagus, no complaints of hematemesis or epigastric abdominal pain, continue on PPI. 9. Chronic neck and back pain and fibromyalgia. Resumed home medications, now with as needed Tramadol and Percocet. Monitor for lethargy. 10. Diabetic peripheral neuropathy complicating her care. 11. Obesity, BMI of 41 complicating her care.
--- NOTE | 2020-12-20 12:54 | REP ---
INDICATION: abd pain distention. COMPARISON: None. CT abdomen pelvis without contrast, 02/09/2015. TECHNIQUE: Imaging protocol: Computed tomography of the abdomen and pelvis with oral and with IV contrast. Contiguous 3 mm thick axial projection images were obtained through the abdomen and pelvis. 2D sagittal and coronal reconstructions were performed. Radiation optimization: All CT scans at this facility use at least one of these dose optimization techniques: automated exposure control; mA and/or kV adjustment per patient size (includes targeted exams where dose is matched to clinical indication); or iterative reconstruction. Contrast material: ISOVUE 370; Contrast volume: 100 ml; Contrast route: INTRAVENOUS (IV). FINDINGS: Heart and lung bases: There is pleural-parenchymal scarring in both lung bases. There are no pleural effusions. The heart size is normal. There is no pericardial effusion. There is calcific vascular disease of the thoracic aorta. Liver: There is evidence of hepatic cirrhosis with a shrunken liver with a lobulated margin. There is fluid in the right perihepatic space. Gallbladder: Surgically absent. Spleen: There is marked splenomegaly measuring 18.4 cm in pole to pole length. Pancreas: Normal. Adrenal glands: Normal. Kidneys/bladder: The kidneys enhance normally. The urinary bladder has a normal unenhanced appearance. Pelvic structures: The uterus and ovaries are surgically absent. There is free fluid in the pelvis. There are serpiginous enhancing vascular structures surrounding the urinary bladder and extending to the internal iliac veins; there are portal to systemic collaterals from the Diana rectal veins to the inferior epigastric veins; consistent with portosystemic shunts. GI tract: There is stool throughout the colon. The appendix is surgically absent. Abdominal wall and mesentery: There is a 5 mm in diameter umbilical hernia containing normal fat. The subcutaneous fat is edematous. There is moderate ascites. There are reactive retroperitoneal and upper abdominal lymph nodes. Abdominal aorta and vascular structures: There is calcific vascular disease of the abdominal aorta. The IVC is dilated measuring 3.6 cm in diameter just inferior to the liver. The portal venous system demonstrates esophageal and gastric varices. Bony structures: There is degenerative disc disease, T11-12. The SI joints and hips are unremarkable. There are 3 cancellous screws in the left femur. IMPRESSION: 1. Hepatic cirrhosis with evidence of portal hypertension with multiple portosystemic shunts as described. 2. Splenomegaly. 3. Moderate ascites. 4. Moderate constipation. 5. Reactive retroperitoneal and upper abdominal lymph nodes. 6. Subcutaneous edema. 7. Other findings as noted. <Electronically signed by Irwin John > 12/20/20 0811
[2020-12-20] MEDS ORDERED: SENOKOT S TAB PO PRN (13:05)
[2020-12-20] MEDS ORDERED: MOM 30ML SUSPENSION UDC PO PRN (13:05)
[2020-12-20] MEDS ORDERED: ELIQ5TAB PO (13:51)
[2020-12-20] MEDS ORDERED: PROT1TAB2 PO (13:51)
--- NOTE | 2020-12-20 14:24 | IPNPDOC ---
Date Seen The patient was seen on 12/20/20. Progress Note Pt refused treatment for decompensated liver cirrhosis with anasarca. "I've always had this much fluid. I don't want this lasix and transfusions." plan: acute decompensated liver cirrhoses with anasarca: -dc iv lasix -dc albumin transfusion -dc midodrine -resume home dose of lasix Hip fracture -per physical therapy, needs more sessions -ARU consulted. VS, I&O, 24H, Fishbone Vital Signs/I&O Vital Signs Date Time Temp Pulse Resp B/P (MAP) Pulse Ox O2 Delivery O2 Flow Rate FiO2 12/20/20 13:50 17 12/20/20 09:00 93 Nasal Cannula 2.0 12/20/20 07:05 98.2 79 115/68 I&O- Last 24 Hours up to 6 AM 12/20/20 06:00 Intake Total 1875 ml Output Total 50 ml Balance 1825 ml Laboratory Data 24H LABS Laboratory Tests 2 12/19/20 16:33: Bedside Glucose (Misc Panel) 177H 12/19/20 19:56: Bedside Glucose (Misc Panel) 328H 12/19/20 22:59: Anion Gap 4L, Glomerular Filtration Rate > 60.0, Calcium Level 7.7L, Magnesium Level 1.6L 12/20/20 06:44: Anion Gap 6L, Glomerular Filtration Rate > 60.0, Calcium Level 8.4L, Magnesium Level 1.7L, Nucleated Red Blood Cells % (auto) 0.0, Immature Platelet Fraction 10.2H, Albumin 2.7L 12/20/20 12:37: Bedside Glucose (Misc Panel) 311H CBC/BMP Laboratory Tests 12/19/20 22:59 12/20/20 06:44 MARILYNN SOLIS MD Dec 20, 2020 14:24
[2020-12-20 20:32] VITALS: BP 116/54
[2020-12-21 05:33] VITALS: BP 130/64
[2020-12-21 06:37] LABS: HEMATOCRIT 36.3 % (36.0-47.0); MEAN CORPUSCULAR HEMOGLOBIN 31.2 pg (27.0-33.0); MEAN CORPUSCULAR HGB CONC 33.1 g/dl (32.0-36.5); MEAN CORPUSCULAR VOLUME 94.3 fl (80.0-96.0); RED BLOOD COUNT 3.85 10^6/uL (4.00-5.40); WHITE BLOOD COUNT 3.6 10^3/uL (4.0-10.0)
[2020-12-21 06:38] LABS: PLATELET COUNT, AUTOMATED 30 10^3/uL (150-450)
[2020-12-21 07:04] LABS: BLOOD UREA NITROGEN 13 MG/DL (7-18); CALCIUM LEVEL 8.6 MG/DL (8.8-10.2); CARBON DIOXIDE LEVEL 37 MEQ/L (21-32); CHLORIDE LEVEL 102 MEQ/L (98-107); CREATININE FOR GFR 0.58 MG/DL (0.55-1.30); GLOMERULAR FILTRATION RATE > 60.0 (>45); GLUCOSE, FASTING 284 MG/DL (70-100); MAGNESIUM LEVEL 1.6 MG/DL (1.8-2.4); POTASSIUM SERUM 4.5 MEQ/L (3.5-5.1); SODIUM LEVEL 139 MEQ/L (136-145)
[2020-12-21] MEDS: ENOXAPARIN 40MG/0.4ML SYRINGE (J1650 PER 10MG) SC SCH (08:13)
[2020-12-21] MEDS: LACTULOSE 20 GM/30 ML SYRUP UD PO SCH (08:23)
[2020-12-21] MEDS: HumaLOG INSULIN (NovoLOG) PER UNIT SC SCH ×2 (08:23→12:00)
[2020-12-21] MEDS: LEVEMIR (INSULIN DETEMIR) 1 UNITS/0.01ML SC SCH (08:24)
[2020-12-21] MEDS: VENLAFAXINE **XR** 75MG CAPSULE PO SCH (08:24)
[2020-12-21] MEDS: oxyCODONE 5MG TAB PO PRN (08:24)
[2020-12-21 09:00] VITALS: O2SAT 93
[2020-12-21] MEDS ORDERED: SPIRONOLACTONE 25 MG TAB PO SCH (09:00)
[2020-12-21] MEDS ORDERED: FUROSEMIDE 40 MG TAB PO SCH (09:00)
[2020-12-21] MEDS ORDERED: FUROSEMIDE 80 MG TAB PO SCH (09:00)
[2020-12-21] MEDS: MAG SULF 1GM/100ML (MAG RUN) 1 GM in IV 1 EA IV SCH ×2 (09:26→10:32)
--- NOTE | 2020-12-21 09:42 | REP ---
INDICATION: EVAL FOR ASCITES PRE PARACENTESIS. COMPARISON: None. TECHNIQUE: Real-time sonographic four quadrant ultrasound to evaluate for ascites FINDINGS: Only a trace amount of fluid was seen along the hepatic dome. IMPRESSION: Minimal free fluid as described above. <Electronically signed by Fred Ziegler > 12/21/20 0957
[2020-12-21] MEDS ORDERED: OXYC-517 PO (11:16)
[2020-12-21] MEDS ORDERED: ALDA100T PO ×2 (11:34→15:23)
[2020-12-21] MEDS ORDERED: PARO40TA3 PO (11:34)
[2020-12-21] MEDS ORDERED: ROPI2TAB3 PO (11:34)
[2020-12-21] MEDS ORDERED: JANU100T PO (11:34)
[2020-12-21] MEDS ORDERED: LASI80TA3 PO (11:34)
[2020-12-21] MEDS ORDERED: PROP10TA56 PO (11:34)
--- NOTE | 2020-12-21 12:01 | IPNPDOC ---
Text Note Date of Service The patient was seen on 12/21/20. NOTE Ortho progress no events, doing well. PE - AVSS LLE - C/D/I GT up/down SILT A/P - 60 yo F s/p CRPP L hip POD # 2 - OOB/PT --> TTWB - SCD --> consider Heme/onc recs for discharge DVT prophy (consider EC ASA 325 daily x 4 weeks if medically appropriate) - d/c planning - f/u 2 weeks in Ortho clinic VS,Kristine, I+O VS, Shaileshbone, I+O Laboratory Tests 12/21/20 05:51 Vital Signs Date Time Temp Pulse Resp B/P (MAP) Pulse Ox O2 Delivery O2 Flow Rate FiO2 12/21/20 09:00 93 Room Air 12/21/20 08:24 17 12/21/20 05:33 98.3 65 130/64 (86) 12/20/20 09:00 2.0 I&O- Last 24 Hours up to 6 AM 12/21/20 06:00 Intake Total 2400 ml Output Total 2650 ml Balance -250 ml SANKET RODRIGUEZ MD Dec 21, 2020 12:01
[2020-12-21] MEDS ORDERED: TORSEMIDE 20 MG TAB PO SCH (17:00)
[2020-12-21] MEDS ORDERED: LEVEMIR (INSULIN DETEMIR) 1 UNITS/0.01ML SC SCH (21:00)
== END 2020-12-21 13:38 | disposition home or self-care (01) | DRG 481 ==
LOC: M ED 12:54 → M ED INP 17:40 → M MS5PR 18:46
PROVIDERS: ADMIT General Practice; ATTEND Internal Medicine Nephrology
PROC: 0QS734Z Reposition Left Upper Femur with Internal Fixation Device, Percutaneous Approach (ICD-10-PCS; principal; 2020-12-19 11:00)
DX: S72.002A Fracture of unspecified part of neck of left femur, initial encounter for closed fracture (principal); Z68.41 Body mass index [BMI] 40.0-44.9, adult; R18.8 Other ascites; K22.70 Barrett's esophagus without dysplasia; E66.9 Obesity, unspecified; W18.30XA Fall on same level, unspecified, initial encounter; Y92.018 Other place in single-family (private) house as the place of occurrence of the external cause; E11.51 Type 2 diabetes mellitus with diabetic peripheral angiopathy without gangrene; K57.30 Diverticulosis of large intestine without perforation or abscess without bleeding; F32.9 Major depressive disorder, single episode, unspecified; G25.81 Restless legs syndrome; J44.9 Chronic obstructive pulmonary disease, unspecified; M79.7 Fibromyalgia; Z85.51 Personal history of malignant neoplasm of bladder; Z88.0 Allergy status to penicillin; Z79.899 Other long term (current) drug therapy; Z79.4 Long term (current) use of insulin; Z88.8 Allergy status to other drugs, medicaments and biological substances; F17.200 Nicotine dependence, unspecified, uncomplicated; D69.6 Thrombocytopenia, unspecified; E83.42 Hypomagnesemia

== ENCOUNTER → 2020-12-31 | Outpatient (CLI) | payer MEDICARE, MEDICAID ==
[~2020-12-31] MED LIST changes: +ALDA100T PO; +ATIV1TAB10 PO; +CONS10SO3 PO; +ELIQ5TAB PO; +FLUTISP NARES; +HYDR-3363 PO; +LASI80TA3 PO; +LINZ145C PO; +NOVOINJ3 SC; +OXYC-517 PO; +PARO40TA3 PO; +PROT1TAB2 PO; +ROPI2TAB3 PO; +TOUJ1.2I SC; +TRAM50TA2 PO; +VENL75CA47 PO
--- NOTE | 2020-12-31 12:09 | REP ---
INDICATION: LT FEMORAL FX. COMPARISON: AP pelvis of 12/19/2020 TECHNIQUE: AP and frog-lateral views FINDINGS: The previously described left hip fracture has been affixed by 3 cancellous screws. None of the tips of the lag screws breach the hip joint space. The alignment is near anatomical. There is no evidence of an acute fracture. Is IMPRESSION: As above <Electronically signed by Fred Ziegler > 12/31/20 [id number]
== END ==
LOC: M SOG 11:38
PROVIDERS: ATTEND Orthopaedic Surgery
DX: S72.002D Fracture of unspecified part of neck of left femur, subsequent encounter for closed fracture with routine healing (principal); X58.XXXD Exposure to other specified factors, subsequent encounter; Y92.9 Unspecified place or not applicable; Y93.9 Activity, unspecified; Y99.9 Unspecified external cause status

== ENCOUNTER 2021-01-03 00:50 | Emergency (ER) | payer MEDICARE, MEDICAID ==
[~2021-01-03] VITALS: Ht 162.6 cm; Wt 107.5 kg
[2021-01-03] MEDS ORDERED: LIDOCAINE 2% 5ML JELLY UROJET TOP ONE (04:40)
[2021-01-03 05:01] LABS: HEMATOCRIT 36.5 % (36.0-47.0); HEMOGLOBIN 12.2 g/dl (12.0-15.5); MEAN CORPUSCULAR HGB CONC 33.4 g/dl (32.0-36.5); MEAN CORPUSCULAR VOLUME 92.9 fl (80.0-96.0); RED BLOOD COUNT 3.93 10^6/uL (4.00-5.40)
[2021-01-03 05:10] LABS: INR 1.26; PROTHROMBIN TIME 16.2 SECONDS (12.7-14.5)
[2021-01-03 05:11] LABS: PARTIAL THROMBOPLASTIN TIME 43.7 SECONDS (25.9-37.0)
[2021-01-03 05:28] LABS: PLATELET COUNT, AUTOMATED 35 10^3/uL (150-450)
[2021-01-03 05:35] LABS: ANISOCYTOSIS 1+; ATYPICAL LYMPH 4 % (0-5); LYMPHOCYTES 32 % (16-44); MONOCYTES 13 % (0-5); NEUTROPHILS 50 % (28-66); PLATELET ESTIMATE MARKED DECREASE (NORMAL)
[2021-01-03 05:39] LABS: ALBUMIN 2.8 GM/DL (3.2-5.2); ALT/SGPT 24 U/L (12-78); BILIRUBIN,TOTAL 1.5 MG/DL (0.2-1.0); BLOOD UREA NITROGEN 10 MG/DL (7-18); CALCIUM LEVEL 8.6 MG/DL (8.8-10.2); CARBON DIOXIDE LEVEL 31 MEQ/L (21-32); CHLORIDE LEVEL 107 MEQ/L (98-107); CREATININE FOR GFR 0.43 MG/DL (0.55-1.30); GLOMERULAR FILTRATION RATE > 60.0 (>45); GLUCOSE, FASTING 155 MG/DL (70-100); POTASSIUM SERUM 4.4 MEQ/L (3.5-5.1); SODIUM LEVEL 142 MEQ/L (136-145); TOTAL PROTEIN 6.2 GM/DL (6.4-8.2)
[2021-01-03] MEDS ORDERED: traMADol 50 MG TAB PO ONE (05:40)
[2021-01-03 06:45] LABS: BILIRUBIN, URINE MANUAL NEGATIVE (NEGATIVE); GLUCOSE, URINE (UA) MANUAL NEGATIVE (NEGATIVE); KETONE, URINE MANUAL NEGATIVE (NEGATIVE); UROBILINOGEN, URINE MANUAL NORMAL (NORMAL)
[2021-01-03 06:49] LABS: RBC, URINE TNTC /hpf (0-3); SQUAMOUS EPITHELIAL CELL URINE NONE SEEN /hpf (SMALL AMT)
[2021-01-03 08:04] VITALS: BP 136/70
[2021-01-03 08:46] LABS: BACTERIA, URINE NONE SEEN; HYALINE CAST, URINE NONE SEEN /lpf (0-1)
== END 2021-01-03 08:23 | disposition home or self-care (01) ==
LOC: M ED 00:50
DX: R31.9 Hematuria, unspecified (principal); R33.9 Retention of urine, unspecified; N93.9 Abnormal uterine and vaginal bleeding, unspecified; J44.9 Chronic obstructive pulmonary disease, unspecified; F17.200 Nicotine dependence, unspecified, uncomplicated

== ENCOUNTER → 2021-01-31 | Outpatient (CLI) | payer MEDICARE, MEDICAID ==
--- NOTE | 2021-01-31 10:52 | REP ---
INDICATION: ORTHOPEDIC AFTERCARE COMPARISON: 12/31/2020 TECHNIQUE: AP and frog-lateral views of the left hip FINDINGS: Three screws are identified through the femoral head/neck in stable satisfactory position. The contour to the proximal femur as well as the adjacent left hemipelvis is normal/stable. No acute pathology is appreciated. Surrounding soft tissues are unremarkable. IMPRESSION: Stable appearance of the left hip. <Electronically signed by Pierre Mercado > 01/31/21 1042
== END ==
LOC: M SOG 10:09
PROVIDERS: ATTEND Orthopaedic Surgery
DX: Z47.89 Encounter for other orthopedic aftercare (principal)

== ENCOUNTER → 2021-02-25 | Outpatient (REF) | payer MEDICARE, MEDICAID | LOC: M SMT 17:19 | PROVIDERS: ATTEND Urology | DX: C67.9 Malignant neoplasm of bladder, unspecified (principal) | CPT/HCPCS: 52000; 88108; G0463 ==

== ENCOUNTER → 2021-05-06 | Outpatient (CLI) | payer MEDICARE, MEDICAID | LOC: M SOG 05-05 10:08 | PROVIDERS: ATTEND Orthopaedic Surgery | DX: S72.012D Unspecified intracapsular fracture of left femur, subsequent encounter for closed fracture with routine healing (principal); X58.XXXD Exposure to other specified factors, subsequent encounter; Y92.89 Other specified places as the place of occurrence of the external cause ==

== ENCOUNTER → 2021-05-30 | Outpatient (REF) | payer MEDICARE, MEDICAID | LOC: M SMT 16:40 | PROVIDERS: ATTEND Urology | DX: C67.9 Malignant neoplasm of bladder, unspecified (principal) ==

== ENCOUNTER 2021-07-14 00:21 | Emergency (ER) | payer MEDICARE, MEDICAID ==
[~2021-07-14] VITALS: Ht 162.6 cm; Wt 105.5 kg
[2021-07-14] MEDS ORDERED: MORPHINE 4 MG/ML 1ML VIAL/SYRINGE IV ONE (06:25)
[2021-07-14 07:42] LABS: BASO % 0.9 % (0.0-1.0); EOS # 0.1 10^3/uL (0.0-0.5); EOS % 1.8 % (0.0-3.0); HEMATOCRIT 40.8 % (36.0-47.0); HEMOGLOBIN 14.3 g/dl (12.0-15.5); LYMPH # 0.9 10^3/uL (1.5-5.0); LYMPH % 26.6 % (24.0-44.0); MEAN CORPUSCULAR HEMOGLOBIN 31.4 pg (27.0-33.0); MEAN CORPUSCULAR VOLUME 89.7 fl (80.0-96.0); MONO # 0.3 10^3/uL (0.0-0.8); MONO % 8.6 % (2.0-8.0); NEUTROPHILS # 2.1 10^3/uL (1.5-8.5); NEUTROPHILS % 61.8 % (36.0-66.0); RED BLOOD COUNT 4.55 10^6/uL (4.00-5.40); WHITE BLOOD COUNT 3.4 10^3/uL (4.0-10.0)
[2021-07-14 07:47] LABS: PLATELET COUNT, AUTOMATED 30 10^3/uL (150-450)
[2021-07-14 08:01] LABS: INR 1.29; PROTHROMBIN TIME 16.6 SECONDS (12.7-14.5)
[2021-07-14 08:12] LABS: ALBUMIN 3.2 GM/DL (3.2-5.2); ALT/SGPT 27 U/L (12-78); BILIRUBIN,TOTAL 1.5 MG/DL (0.2-1.0); BLOOD UREA NITROGEN 13 MG/DL (7-18); CALCIUM LEVEL 8.8 MG/DL (8.8-10.2); CARBON DIOXIDE LEVEL 30 MEQ/L (21-32); CHLORIDE LEVEL 107 MEQ/L (98-107); CREATININE FOR GFR 0.57 MG/DL (0.55-1.30); GLOMERULAR FILTRATION RATE > 60.0 (>45); GLUCOSE, FASTING 147 MG/DL (70-100); POTASSIUM SERUM 4.4 MEQ/L (3.5-5.1); SODIUM LEVEL 140 MEQ/L (136-145); TOTAL PROTEIN 6.3 GM/DL (6.4-8.2)
[2021-07-14] MEDS ORDERED: KETOROLAC 30 MG/ML 1ML VIAL IV ONE (08:30)
[2021-07-14] MEDS ORDERED: CYCL-707 PO (08:34)
[2021-07-14 08:50] VITALS: BP 143/67
== END 2021-07-14 08:51 | disposition home or self-care (01) ==
LOC: M ED 00:21
DX: T84.296A Other mechanical complication of internal fixation device of vertebrae, initial encounter (principal); M25.552 Pain in left hip; R16.1 Splenomegaly, not elsewhere classified; K76.6 Portal hypertension; E66.9 Obesity, unspecified; E11.9 Type 2 diabetes mellitus without complications; I10 Essential (primary) hypertension; J44.9 Chronic obstructive pulmonary disease, unspecified; F41.9 Anxiety disorder, unspecified; F32.9 Major depressive disorder, single episode, unspecified; F17.200 Nicotine dependence, unspecified, uncomplicated; F12.10 Cannabis abuse, uncomplicated; Z79.4 Long term (current) use of insulin; Z79.899 Other long term (current) drug therapy; Z88.8 Allergy status to other drugs, medicaments and biological substances
CPT/HCPCS: 72125; 72131; 73502; 80053; 85025; 85049; 85055; 85610; 96374; 99284; J1885

== ENCOUNTER → 2021-09-13 | Outpatient (CLI) | payer MEDICARE, MEDICAID ==
[~2021-09-13] MED LIST changes: +CYCL-707 PO
== END ==
LOC: M PAIN 13:30
PROVIDERS: ATTEND Nurse Practitioner Family
DX: M79.641 Pain in right hand (principal); M79.642 Pain in left hand; G89.29 Other chronic pain; E11.9 Type 2 diabetes mellitus without complications; J44.9 Chronic obstructive pulmonary disease, unspecified; M79.7 Fibromyalgia; G25.81 Restless legs syndrome; F17.200 Nicotine dependence, unspecified, uncomplicated; Z86.59 Personal history of other mental and behavioral disorders; Z88.8 Allergy status to other drugs, medicaments and biological substances; Z79.4 Long term (current) use of insulin; Z79.899 Other long term (current) drug therapy

== ENCOUNTER → 2022-01-09 | Outpatient (REF) | payer MEDICARE, MEDICAID | LOC: M SMT 17:35 | PROVIDERS: ATTEND Urology | DX: Z85.51 Personal history of malignant neoplasm of bladder (principal) ==

== ENCOUNTER 2022-08-04 15:16 | Emergency (ER) | payer MEDICARE, MEDICAID ==
[~2022-08-04] VITALS: Ht 160 cm; Wt 96.3 kg
[~2022-08-04 15:16] MED LIST changes: +FLUT50SP17 NARES; -FLUTISP NARES
[2022-08-04 16:12] LABS: BASO % 0.3 % (0.0-1.0); EOS % 0.6 % (0.0-3.0); HEMATOCRIT 46.6 % (36.0-47.0); HEMOGLOBIN 16.1 g/dl (12.0-15.5); LYMPH # 0.5 10^3/uL (1.5-5.0); LYMPH % 15.7 % (24.0-44.0); MEAN CORPUSCULAR HEMOGLOBIN 31.9 pg (27.0-33.0); MEAN CORPUSCULAR HGB CONC 34.5 g/dl (32.0-36.5); MEAN CORPUSCULAR VOLUME 92.5 fl (80.0-96.0); MONO # 0.3 10^3/uL (0.0-0.8); MONO % 8.6 % (2.0-8.0); NEUTROPHILS # 2.4 10^3/uL (1.5-8.5); NEUTROPHILS % 74.5 % (36.0-66.0); RED BLOOD COUNT 5.04 10^6/uL (4.00-5.40); WHITE BLOOD COUNT 3.3 10^3/uL (4.0-10.0)
[2022-08-04 16:40] LABS: PLATELET COUNT, AUTOMATED 38 10^3/uL (150-450)
[2022-08-04 16:58] LABS: ALBUMIN 2.9 G/DL (3.2-5.2); ALKALINE PHOSPHATASE 71 U/L (46-116); ALT/SGPT 17 U/L (7.0-40); AST/SGOT 25 U/L (<34); BILIRUBIN,DIRECT 0.8 MG/DL (<0.4); BILIRUBIN,TOTAL 1.8 MG/DL (0.3-1.2); BLOOD UREA NITROGEN 10 MG/DL (9-23); CALCIUM LEVEL 7.7 MG/DL (8.3-10.6); CARBON DIOXIDE LEVEL 36 MMOL/L (20-31); CHLORIDE LEVEL 104 MMOL/L (98-107); CREATININE FOR GFR 0.62 MG/DL (0.55-1.30); GLOMERULAR FILTRATION RATE > 60.0 (>45); GLUCOSE, FASTING 212 MG/DL (74-106); LIPASE 35 U/L (12-53); POTASSIUM SERUM 4.2 MMOL/L (3.5-5.1); SODIUM LEVEL 141 MMOL/L (136-145); TOTAL PROTEIN 5.5 G/DL (5.7-8.2)
[2022-08-04 18:55] VITALS: BP 103/58
== END 2022-08-04 22:03 | disposition home or self-care (01) ==
LOC: M ED 15:16 → EDBD 15:16 → M ED 22:03
DX: T78.40XA Allergy, unspecified, initial encounter (principal); R11.2 Nausea with vomiting, unspecified; J90 Pleural effusion, not elsewhere classified; E11.9 Type 2 diabetes mellitus without complications; J44.9 Chronic obstructive pulmonary disease, unspecified; M79.7 Fibromyalgia; G25.81 Restless legs syndrome; Z85.51 Personal history of malignant neoplasm of bladder; Z87.19 Personal history of other diseases of the digestive system; Z79.4 Long term (current) use of insulin; Z79.899 Other long term (current) drug therapy; Z88.8 Allergy status to other drugs, medicaments and biological substances